=== PATIENT | female | born 1995 | race Hispanic/Latino ===

== ENCOUNTER 2018-10-14 15:27 | Emergency (ER) | payer OTHER ==
[2018-10-14 15:54] VITALS: BP 158/68
--- NOTE | 2018-10-14 15:58 | Emergency Department Report ---
Chief Complaint: Extremity Injury, Lower Stated Complaint: RT ANKLE PAIN/SWELLING Time Seen by Provider: 10/14/18 15:53 - HPI History of Present Illness: This is a 23 y.o. male that presents to the ER with RLE swelling and redness since this morning. Patient reports achy sensation to right ankle for 3 day prior swelling and redness yesterday. Patient road [employer] from [place] last week. Denies injury. - Exam Vital Signs: Vital Signs 10/14/18 15:52 Temperature 98.2 F Pulse Rate 98 H Respiratory 20 Rate Blood Pressure 158/68 O2 Sat by Pulse 100 Oximetry MSE screening note: Focused history and physical exam performed. Due to findings the following was ordered: ACC for further evaluation. ED Medical Decision Making - Medical Decision Making This is a 23 y.o. male that presents to the ER with RLE swelling and redness. Ordered duplex Doppler to r/o DVT. Patient states he doesn't have insurance and decided to sign AMA. As we discussed, you have left the hospital/emergency room AGAINST MEDICAL ADVICE. By leaving, you risked , disability, paralysis, permanent loss of quality of life. The ER is open 24 hours a day, 7 days a week. It never closes. Please return to the emergency room right away if and when you change your mind. If you decide not to return to the emergency room, please follow-up with the listed physician referrals as soon as possible. ED Disposition for MSE Condition: Stable Referrals: CANDACE BARROSO MD [Referring] - 3-5 Days Forms: AMA Form
== END 2018-10-14 16:15 | disposition left against medical advice (07) ==
LOC: ED 15:27
DX: M25.571 Pain in right ankle and joints of right foot (principal); R22.41 Localized swelling, mass and lump, right lower limb; Z88.1 Allergy status to other antibiotic agents
CPT/HCPCS: 99282

== ENCOUNTER 2018-10-14 20:06 | Emergency (ER) | payer SELFPAY ==
[2018-10-14 21:00] VITALS: BP 97/76
== END 2018-10-14 21:40 | disposition left against medical advice (07) ==
LOC: ED 20:06
DX: M25.571 Pain in right ankle and joints of right foot (principal); Z53.21 Procedure and treatment not carried out due to patient leaving prior to being seen by health care provider

== ENCOUNTER 2018-10-15 00:20 | Emergency (ER) | payer OTHER ==
[2018-10-15 04:06] VITALS: BP 121/77
[2018-10-15] MEDS ORDERED: IBUPROFEN PO ONE (04:43)
--- NOTE | 2018-10-15 06:09 | Emergency Department Report ---
ED General Adult HPI - General Chief complaint: Extremity Injury, Lower Stated complaint: SWOLLEN LEFT ANKLE Time Seen by Provider: 10/15/18 04:41 Source: patient Mode of arrival: Ambulatory Limitations: No Limitations - History of Present Illness Initial comments: Patient is a 23-year-old white male who presents for left heel blister states he's been walking for the last 2 days with no socks is a chronic problem for this patient for the last year there is no fever there is no chills there is no drainage at this time blister is open patient has administered soft dressing pain is described as 5/10 irritated by having shoe rubbing against blister pain is relieved by rest and offloading there is no numbness no tingling Onset/Timin -: month(s) Location: lower extremity Radiation: extremity Severity scale (0 -10): 5 Quality: burning, aching Consistency: constant Improves with: rest Worsens with: immobilization, movement Treatments Prior to Arrival: none - Related Data Previous Rx's Medication Instructions Recorded Last Taken Type Clindamycin [Clindamycin CAP] 300 mg PO Q8H 10 Days #30 cap 10/15/18 Unknown Rx Neomycn/Bacitrc/Polymyx/Pramox 1 applicatio TP BID #1 tube 10/15/18 Unknown Rx [Neosporin + Pain Relief Oint] traMADol [Ultram] 50 mg PO Q6HR PRN #12 tablet 10/15/18 Unknown Rx Allergies Allergy/AdvReac Type Severity Reaction Status Date / Time amoxicillin Allergy Unknown Verified 10/14/18 15:52 ED Review of Systems ROS: Stated complaint: SWOLLEN LEFT ANKLE Other details as noted in HPI Constitutional: denies: chills, fever Eyes: denies: eye pain, eye discharge, vision change ENT: denies: ear pain, throat pain Respiratory: denies: cough, shortness of breath, wheezing Cardiovascular: as per HPI Endocrine: no symptoms reported Gastrointestinal: denies: abdominal pain, nausea, diarrhea Genitourinary: denies: urgency, dysuria, discharge Musculoskeletal: other (left foot pain blister ) Skin: other (left foot blister as above ). denies: rash, lesions Neurological: denies: headache, weakness, paresthesias Psychiatric: denies: anxiety, depression Hematological/Lymphatic: denies: easy bleeding, easy bruising ED Past Medical Hx - Past Medical History Previous Medical History?: Yes Additional medical history: HEP C - Surgical History Past Surgical History?: Yes Additional Surgical History: Tonsillectomy - Social History Smoking Status: Never Smoker Substance Use Type: None - Medications Home Medications: Home Medications Medication Instructions Recorded Confirmed Last Taken Type Clindamycin [Clindamycin CAP] 300 mg PO Q8H 10 Days #30 cap 10/15/18 Unknown Rx Neomycn/Bacitrc/Polymyx/Pramox 1 applicatio TP BID #1 tube 10/15/18 Unknown Rx [Neosporin + Pain Relief Oint] traMADol [Ultram] 50 mg PO Q6HR PRN #12 tablet 10/15/18 Unknown Rx ED Physical Exam - General Limitations: No Limitations General appearance: alert, in no apparent distress - Head Head exam: Present: atraumatic, normocephalic - Eye Eye exam: Present: normal appearance, PERRL, EOMI Pupils: Present: normal accommodation - ENT ENT exam: Present: normal exam - Neck Neck exam: Present: normal inspection - Respiratory Respiratory exam: Present: normal lung sounds bilaterally. Absent: respiratory distress - Cardiovascular Cardiovascular Exam: Present: regular rate, normal rhythm, normal heart sounds. Absent: systolic murmur, diastolic murmur, rubs, gallop - GI/Abdominal GI/Abdominal exam: Present: soft, normal bowel sounds - Rectal Rectal exam: Present: deferred - Extremities Exam Extremities exam: Present: full ROM, tenderness (left heel ), normal capillary refill. Absent: pedal edema, joint swelling, calf tenderness - Expanded Lower Extremity Exam Left Foot/Toe exam: Present: tenderness (left heel ), erythema. Absent: abrasion, laceration, ecchymosis, deformity, crepidus, foreign body, calcaneal tenderness Neuro vascular tendon exam: Present: no vascular compromise. Absent: motor deficit, sensory deficit, tendon deficit Gait: Positive: observed and normal - Back Exam Back exam: Present: normal inspection, full ROM, muscle spasm. Absent: tenderness, CVA tenderness (R), CVA tenderness (L), rash noted - Neurological Exam Neurological exam: Present: alert, oriented X3, CN II-XII intact, normal gait, reflexes normal. Absent: motor sensory deficit - Psychiatric Psychiatric exam: Present: normal affect, normal mood - Skin Skin exam: Present: warm, dry, intact, normal color. Absent: rash ED Course Vital Signs 10/15/18 10/15/18 10/15/18 00:45 04:05 04:50 Temperature 98.1 F 97.8 F Pulse Rate 82 72 Respiratory 16 18 18 Rate Blood Pressure 124/68 Blood Pressure 121/77 [Left] O2 Sat by Pulse 100 Oximetry ED Medical Decision Making - Medical Decision Making this is a blister caused by friction rub of boot, pt given wound care, distal pulses intact there is minimal swelling on fever no chills no n/v plan Ibuprofen, Keflex pt will follow up with [facility] in 2-3 days , pt verbalized agreement and understanding of dishcharge plan pt for dc to home in stable condition at this time.. Critical care attestation.: If time is entered above; I have spent that time in minutes in the direct care of this critically ill patient, excluding procedure time. ED Disposition Clinical Impression: Blister of foot, left Qualifiers: Encounter type: initial encounter Qualified Code(s): S90.822A - Blister (nonthermal), left foot, initial encounter Disposition: DC-01 TO HOME OR SELFCARE Is pt being admited?: No Does the pt Need Aspirin: No Condition: Stable Instructions: Blister (ED), Cellulitis (ED) Prescriptions: Clindamycin [Clindamycin CAP] 300 mg PO Q8H 10 Days #30 cap Neomycn/Bacitrc/Polymyx/Pramox [Neosporin + Pain Relief Oint] 1 applicatio TP BID #1 tube traMADol [Ultram] 50 mg PO Q6HR PRN #12 tablet PRN Reason: Pain Referrals: [facility] [Outside] - 3-5 Days Forms: Work/School Release Form(ED) Time of Disposition: 06:22
[2018-10-15] MEDS ORDERED: TRIPLE ANTIBIOTIC TP ONE (06:23)
== END 2018-10-15 06:40 | disposition home or self-care (01) ==
LOC: ED 00:20
DX: S90.822A Blister (nonthermal), left foot, initial encounter (principal); Z90.89 Acquired absence of other organs; Z86.19 Personal history of other infectious and parasitic diseases; Z88.1 Allergy status to other antibiotic agents; X58.XXXA Exposure to other specified factors, initial encounter; Y93.89 Activity, other specified; Y92.89 Other specified places as the place of occurrence of the external cause; Y99.8 Other external cause status
CPT/HCPCS: A6250

== ENCOUNTER 2018-10-15 23:46 | Emergency (ER) | payer SELFPAY | END 2018-10-16 00:06 | disposition left against medical advice (07) | LOC: ED 23:46 | DX: B99.9 Unspecified infectious disease (principal); Z53.21 Procedure and treatment not carried out due to patient leaving prior to being seen by health care provider ==